=== PATIENT | male | born 1945 | race Caucasian/White ===

== ENCOUNTER → 2019-07-04 | Outpatient (CLI) | payer MEDICARE ==
--- NOTE | 2019-07-04 11:29 | Diagnostic Imaging Report ---
PROCEDURE: CT abdomen and pelvis without contrast. TECHNIQUE: Multiple contiguous axial images were obtained through the abdomen and pelvis without the use of intravenous contrast. Auto Exposure Controls were utilized during the CT exam to meet ALARA standards for radiation dose reduction. INDICATION: Recent diagnosis of prostate cancer. COMPARISON: None. FINDINGS: The heart is unremarkable. The included lung bases are clear. The liver, spleen, pancreas, and adrenal glands have a normal noncontrast CT appearance. The gallbladder is nondilated and unremarkable. A cyst is seen in the superior pole of the right kidney measuring 1.9 cm. No evidence of hydronephrosis or renal calculi. There is no pathologically enlarged mesenteric or retroperitoneal adenopathy. The bowel loops are nondilated. The appendix is fluid-filled and somewhat dilated measuring 1.1 cm. Calcification is seen in the wall of the appendix. Scattered diverticuli are seen in the descending and sigmoid colon without evidence of acute diverticulitis. No periappendicular fat stranding is seen. There is no free fluid or free air. No acute osseous abnormalities are seen. No focal osseous lesions are identified. Ventral fat-containing hernia is noted in the anterior midline of the abdomen. There is calcified aortic and iliac atherosclerotic plaque without aneurysm. The urinary bladder is nondistended. There is no free air, loculated collection, or adenopathy in the pelvis. IMPRESSION: 1. No pathologically enlarged lymphadenopathy in the abdomen and pelvis. No focal osseous lesion to suggest metastatic disease. 2. Dilated and fluid-filled appendix without associated inflammatory changes. 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 Consider surgical consultation to further evaluate. Dictated by: Dictated on workstation # [id number]
--- NOTE | 2019-07-04 14:30 | Diagnostic Imaging Report ---
INDICATION: Prostate carcinoma. Patient was administered 25.1 mCi technetium 99m MDP intravenously and whole-body imaging was performed after a 3 hour delay. No prior studies are available for comparison. There is normal uptake of activity by the axial and appendicular skeleton. There is uptake by both kidneys with excretion into the urinary bladder. Mild degenerative changes in the right knee and left foot are noted. No abnormal foci are seen to suggest osseous metastatic disease. IMPRESSION: No scintigraphic evidence of osseous metastatic disease. Dictated by: Dictated on workstation # [id number]
== END ==
LOC: CARD 10:38
PROVIDERS: ATTEND Urology
DX: C61 Malignant neoplasm of prostate (principal)
CPT/HCPCS: 74176; 78306

== ENCOUNTER 2019-08-18 08:21 | Outpatient (CLI) | payer MEDICARE ==
[~2019-08-18] VITALS: Ht 182.9 cm; Wt 103.6 kg
[2019-08-18] MEDS ORDERED: LOSA50TA63 PO (08:55)
== END 2019-08-18 09:22 | disposition home or self-care (01) ==
LOC: PREOP 08:21
PROVIDERS: ATTEND Urology
DX: Z01.818 Encounter for other preprocedural examination (principal)

== ENCOUNTER 2019-08-20 06:48 | Day surgery (SDC) | payer MEDICARE ==
[~2019-08-20] VITALS: Ht 183 cm; Wt 103.6 kg
[2019-08-20] VITALS (8 sets, daily range): BP systolic 109–155; BP diastolic 59–87
[~2019-08-20 06:48] MED LIST: LOSA50TA63 PO
[2019-08-20] MEDS ORDERED: LACTATED RINGERS 1,000 ML IV PRN (07:04)
--- NOTE | 2019-08-20 07:13 | Progress Note-Pre Operative ---
Pre-Operative Progress Note H&P Reviewed The H&P was reviewed, patient examined and no changes noted. Date Seen by Provider: Aug 20, 2019 Time Seen by Provider: 07:13 Date H&P Reviewed: Aug 20, 2019 Time H&P Reviewed: 07:13 Pre-Operative Diagnosis: CA PROSTATE AMADO BARNARD MD Aug 20, 2019 07:13
[2019-08-20] MEDS ORDERED: LEVOFLOXACIN 500 MG/100 ML IV 100 ML IV ONE (07:15)
--- NOTE | 2019-08-20 07:28 | Progress Note-Post Operative ---
Post-Operative Progess Note Surgeon (s)/Filter Cleaner (s) Surgeon AMADO BARNARD MD, YURI VICTOR Filter Cleaner: NONE Pre-Operative Diagnosis CA PROSTATE Post-Operative Diagnosis SAME Procedure & Operative Findings Date of Procedure 08/20/19 Procedure Performed/Findings BRACHYTHERAPY, SPACE OAR, AND CYSTOGRAM Anesthesia Type GENERAL Estimated Blood Loss Estimated blood loss (mL): NEGLIGIBLE Specimens/Packing Specimens Removed NONE Packing: NONE AMADO BARNARD MD Aug 20, 2019 07:28
[2019-08-20] MEDS ORDERED: CATHETER FLUSH 10 ML SYR IV PRN (07:30)
--- NOTE | 2019-08-20 07:31 | Discharge Inst-Urology ---
Discharge Inst-Urology Reconcile Patient Problems Problems Reviewed?: Yes Final Diagnosis CA PROSTATE Patient Instructions/Follow Up Plan/Assessment/Instructions Discharge with Mckenzie and leg bag (day time), and large bag (night time) with instructions Patient to come to office Sunday 9am to [facility] Mckenzie Please make appointment to been seen in office in 2 weeks. Rest till then Showers, no baths Keep bowels soft and moving Increase oral fluids for 48 hours and then as needed. Diet as tolerated. If questions or concerns contact your physician Or seek help at emergency department. AMADO BARNARD MD Aug 20, 2019 07:31
[2019-08-20] MEDS ORDERED: CIPR-225 PO (07:41)
[2019-08-20] MEDS ORDERED: TMSL.4C PO (07:41)
[2019-08-20] MEDS ORDERED: PHEN-640 PO (07:41)
[2019-08-20] MEDS ORDERED: BACITRACIN OINTMENT 28 GM TUBE ONE (09:14)
[2019-08-20] MEDS ORDERED: fentaNYL INJECTION 100 MCG/2 ML AMP ONE (09:14)
[2019-08-20] MEDS ORDERED: IOPAMIDOL 61% 30 ML (ISOVUE 300) VIAL ONE (09:14)
[2019-08-20] MEDS ORDERED: DEXAMETHASONE 10 MG/ML (DECADRON) 1 ML VIAL ONE (09:14)
[2019-08-20] MEDS ORDERED: proPOfol 200 MG/20 ML (DIPRIVAN) VIAL IV ONE (09:14)
[2019-08-20] MEDS ORDERED: SEVOFLURANE (ULTANE) 15 ML INHAL SOLN ONE ×3 (09:14→11:38)
[2019-08-20] MEDS ORDERED: ONDANSETRON 4 MG/2 ML (SDV) Z0FRAN ONE (09:14)
[2019-08-20] MEDS ORDERED: LIDOCAINE PF 2% 5 ML (XYLOCAINE) VIAL ONE (09:14)
--- NOTE | 2019-08-20 10:53 | Anesthesia-General Post-Op ---
General Patient Condition Mental Status/LOC: Same as Preop Cardiovascular: Satisfactory Nausea/Vomiting: Absent Respiratory: Satisfactory Pain: Controlled Complications: Absent Post Op Complications Complications None Follow Up Care/Instructions Patient Instructions None needed. Anesthesia/Patient Condition Patient Condition Patient is doing well, no complaints, stable vital signs, no apparent adverse anesthesia problems. No complications reported per nursing. JU HOANG CRNA Aug 20, 2019 10:53
--- NOTE | 2019-08-20 11:25 | Diagnostic Imaging Report ---
EXAMINATION: Fluoroscopy. INDICATION: Brachytherapy. TECHNIQUE: Fluoroscopic assistance was provided for Dr. Cisneros for his brachytherapy procedure. 7 seconds of fluoro time was utilized. FINDINGS: A single spot film of the pelvis was received. There are numerous radiopaque seed implants overlying the prostate gland. The bladder has been opacified by contrast and there is a Mckenzie catheter within the bladder. IMPRESSION: Fluoroscopic assistance was provided for Dr. Cisneros. Dictated by: Dictated on workstation # [id number]
[2019-08-20] MEDS ORDERED: PHENAZOPYRIDINE 100 MG (PYRIDIUM) TABLET ONE (11:45)
[2019-08-20] MEDS ORDERED: PHENAZOPYRIDINE 100 MG (PYRIDIUM) TABLET PO ONE (12:00)
[2019-08-20] MEDS ORDERED: morphine INJ 10 MG/ML 1ML (SYR OR VIAL) IVP ONE (12:00)
[2019-08-20] MEDS ORDERED: ONDANSETRON 4 MG/2 ML (SDV) Z0FRAN IVP PRN (12:00)
== END 2019-08-20 12:45 | disposition home or self-care (01) ==
LOC: SDC 06:48
PROVIDERS: ATTEND Urology
DX: C61 Malignant neoplasm of prostate (principal); K21.9 Gastro-esophageal reflux disease without esophagitis; I10 Essential (primary) hypertension; Z87.891 Personal history of nicotine dependence
CPT/HCPCS: 76965; 77318; 77332; 77370; 77470; 77778; 87081

== ENCOUNTER 2019-09-17 14:05 | Outpatient (RCR) | payer MEDICARE ==
[~2019-09-17 14:05] MED LIST changes: +CIPR-225 PO; +PHEN-640 PO; +TMSL.4C PO
== END 2019-11-04 | disposition home or self-care (01) ==
LOC: ONC 14:05
PROVIDERS: ATTEND Radiology Radiation Oncology
DX: Z51.0 Encounter for antineoplastic radiation therapy (principal); C61 Malignant neoplasm of prostate
CPT/HCPCS: 76873; 77290; 99205

== ENCOUNTER → 2020-02-03 | Outpatient (RCR) | payer MEDICARE | END | disposition home or self-care (01) | LOC: ONC 11-05 02:45 | PROVIDERS: ATTEND Radiology Radiation Oncology | DX: Z51.0 Encounter for antineoplastic radiation therapy (principal); C61 Malignant neoplasm of prostate | CPT/HCPCS: 77295; 77300; 77301; 77334; 77336; 77338; 77385 ==

== ENCOUNTER 2020-02-27 12:50 | Outpatient (RCR) | payer MEDICARE | END 2020-05-04 | disposition home or self-care (01) | LOC: ONC 12:50 | PROVIDERS: ATTEND Radiology Radiation Oncology | DX: Z51.0 Encounter for antineoplastic radiation therapy (principal); C61 Malignant neoplasm of prostate | CPT/HCPCS: 77385 ×2; G0463; 77336 ==